=== PATIENT | male | born 1980 | race Caucasian/White ===

== ENCOUNTER → 2017-09-13 | Outpatient (CLI) | payer OTHER ==
[~2017-09-13] MED LIST: ACET-1966 PO; CYCL10TA29 PO; GUAI-334 PO; GUAI600T57 PO; IBUP-56 PO; OSE75 PO; OXYC5TAB38 PO
[2017-09-13 09:40] LABS: PLATELET COUNT, AUTOMATED 205 K/uL (150-450)
--- NOTE | 2017-09-13 10:23 | RADIOLOGY IMAGING REPORT ---
FACILITY: [facility] [place] PATIENT NAME: Mateusz Mccoy : 1980 MR: [id number] V: [id number] EXAM DATE: ORDERING PHYSICIAN: ORIANA ANTUNEZ TECHNOLOGIST: Location: [facility] Patient: Mateusz Mccoy : 1980 Visit/Account:[id number] Date of Sevice: 09/13/2017 Exam type: KUB SINGLE VIEW ABDOMEN History: Material, urinary frequency, pelvic pain Comparison: None. Findings: There is a nonspecific bowel gas pattern present. There are several calcifications in the right-side d the pelvis which may represent phleboliths although distal right ureteral calculi not totally exclu ded. There appear to be amorphous calcifications in right upper quadrant of the abdomen could be wit hin the gallbladder, liver or superimposed calcifications. There is no gross evidence of organomegal y. IMPRESSION: 1. Several calcifications are seen in the right-sided the pelvis which may represent phleboliths alt ehsan distal right ureteral calculi not totally excluded Amorphous calcifications in the right upper quadrant of abdomen may be within the gallbladder, liver or superimposed Report Dictated By: Lani Tolentino MD at 09/13/2017 10:13 AM Report E-Signed By: Lani Tolentino MD at 09/13/2017 10:19 AM WSN:[email or web address]
--- NOTE | 2017-09-13 14:00 | RADIOLOGY IMAGING REPORT ---
FACILITY: [facility] PATIENT NAME: Mateusz Mccoy : 1980 MR: [id number] V: [id number] EXAM DATE: ORDERING PHYSICIAN: ORIANA ANTUNEZ TECHNOLOGIST: Location: [facility] Patient: Mateusz Mccoy : 1980 Visit/Account:[id number] Date of Sevice: 09/13/2017 ABDOMEN/PELVIS W/O CONTRAST HISTORY: Hematuria, urinary frequency, abnormal x-ray TECHNIQUE: Axial images acquired through the abdomen/pelvis. Coronal and sagittal reformatting also performed. No IV contrast administered. Dose Lowering Technique One of the following dose optimization techniques was utilized in the performance of this exam: Autom ated exposure control; adjustment of the mA and/or kV according to the patient's size; or use of an i terative reconstruction technique. Specific details can be referenced in the facility's radiology C T exam operational policy. COMPARISON: KUB performed today FINDINGS: Visualized lung bases: Negative. Hepatobiliary: There are numerous large irregular stone seen within the gallbladder. There is an ad ditional 6 mm calcification which may be within the cystic duct. There is no evidence of biliary ismael renee dilatation Spleen: Negative. Adrenals: Negative. Pancreas: Negative. Kidneys ureters and bladder: There is a 2 mm nonobstructing calculus upper pole the left kidney. No evidence of hydronephrosis or hydroureter. Multiple calcifications within the right-sided the pelvis appear to represent phleboliths as opposed to ureteral calculi . There appears to be a small amoun t of fat in the anterior bladder wall Genitalia: Prostate gland is mildly prominent impinging upon the floor the bladder GI: The appendix is visualized and does not appear inflamed Vessels/spaces/nodes: Negative. Bones/soft tissues: Mild spondylotic changes L5-S1 Additional findings: None pertinent. IMPRESSION: There are numerous large irregular stone seen within the gallbladder. There is an additional six and a linear calcification which may be within the cystic duct. No evidence of biliary ductal dilatatio n 2 mm nonobstructing calculus upper pole the left kidney. No evidence of hydronephrosis or hydrourete r Report Dictated By: Lani Tolentino MD at 09/13/2017 1:41 PM Report E-Signed By: Lani Tolentino MD at 09/13/2017 1:56 PM BRENNONN:[email or web address]
== END ==
LOC: LAB 08:41
PROVIDERS: ATTEND Internal Medicine
DX: K80.20 Calculus of gallbladder without cholecystitis without obstruction (principal); N20.0 Calculus of kidney; M47.897 Other spondylosis, lumbosacral region; I87.8 Other specified disorders of veins
CPT/HCPCS: 36415; 74018; 74176; 81001; 82040; 82150; 82247; 82310; 82374; 82435; 82565; 82947; 83690; 84075; 84132; 84155; 84295; 84443; 84450; 84460; 84520; 85025

== ENCOUNTER → 2017-09-17 | Outpatient (CLI) | payer OTHER ==
[2017-09-17 10:19] LABS: PLATELET COUNT, AUTOMATED 180 K/uL (150-450)
== END ==
LOC: LAB 09:56
PROVIDERS: ATTEND Internal Medicine
DX: K76.89 Other specified diseases of liver (principal); K80.20 Calculus of gallbladder without cholecystitis without obstruction; K21.9 Gastro-esophageal reflux disease without esophagitis
CPT/HCPCS: 36415; 81001; 82040; 82247; 82310; 82374; 82435; 82565; 82947; 84075; 84132; 84155; 84295; 84450; 84460; 84520; 85025

== ENCOUNTER → 2017-10-19 | Outpatient (CLI) | payer OTHER ==
--- NOTE | 2017-10-19 09:02 | RADIOLOGY IMAGING REPORT ---
FACILITY: [facility] PATIENT NAME: Mateusz Mccoy : 1980 MR: [id number] V: [id number] EXAM DATE: ORDERING PHYSICIAN: OSVALDO SHRESTHA TECHNOLOGIST: Location: [facility] Patient: Mateusz Mccoy : 1980 Visit/Account:[id number] Date of Sevice: 10/19/2017 GALLBLADDER HISTORY: Abnormal CT with stones in the gallbladder. COMPARISON: CT dated September 13, 2017. FINDINGS: Liver: Enlarged measuring 18.9 cm in sagittal length with moderate to advanced hepatic steatosis. Ot herwise negative. Gallbladder: Multiple small gallstones without evidence for acute cholecystitis. Common duct: Normal, 4 mm diameter. Pancreas: Partially obscured by bowel, visualized aspects unremarkable. Right kidney: Negative. Upper abdominal aorta and IVC: Patent. Ascites: None visualized. IMPRESSION: 1. No acute findings. 2. Cholelithiasis without evidence for acute cholecystitis. 3. Hepatomegaly with moderate to advanced hepatic steatosis. Report Dictated By: Fransico Jim MD at 10/19/2017 8:56 AM Report E-Signed By: Fransico Jim MD at 10/19/2017 8:58 AM WSN:[email or web address]
== END ==
LOC: US 00:50
PROVIDERS: ATTEND Surgery
DX: K80.20 Calculus of gallbladder without cholecystitis without obstruction (principal); R16.0 Hepatomegaly, not elsewhere classified
CPT/HCPCS: 76705

== ENCOUNTER → 2017-12-07 | Outpatient (CLI) | payer OTHER ==
[2017-12-07 09:37] LABS: PLATELET COUNT, AUTOMATED 187 K/uL (150-450)
[2017-12-07 10:02] LABS: LDL CHOLESTEROL 139 mg/dl
== END ==
LOC: LAB 09:11
PROVIDERS: ATTEND Internal Medicine
DX: K76.89 Other specified diseases of liver (principal); Z80.0 Family history of malignant neoplasm of digestive organs; K76.0 Fatty (change of) liver, not elsewhere classified; K80.20 Calculus of gallbladder without cholecystitis without obstruction; R20.0 Anesthesia of skin
CPT/HCPCS: 36415; 80074; 82040; 82247; 82310; 82374; 82435; 82465; 82565; 82607; 82728; 82746; 82947; 83540; 83550; 83718; 84075; 84132; 84155; 84295; 84443; 84450; 84460; 84478; 84520; 85025